=== PATIENT | female | born 1980 | race Caucasian/White ===

== ENCOUNTER → 2016-06-27 | Outpatient (CLI) | payer OTHER | END | disposition home or self-care (01) | LOC: LABWHC1 09:06 | PROVIDERS: ATTEND Surgery | DX: E89.0 Postprocedural hypothyroidism (principal) | CPT/HCPCS: 36415; 84436; 84439; 84443; 84480 ==

== ENCOUNTER 2017-08-14 16:45 | Emergency (ER) | payer OTHER ==
[2017-08-14 17:51] VITALS: RESP 18
[2017-08-14] MEDS ORDERED: DICYCLOMINE 20 MG TAB PO STA (18:00)
[2017-08-14] MEDS ORDERED: diphenhydrAMINE 50 MG/ML 1 ML VIAL IVP STA (18:00)
[2017-08-14] MEDS ORDERED: SODIUM CHLORIDE 0.9% 1,000 ML IV STA (18:00)
[2017-08-14] MEDS ORDERED: METOCLOPRAMIDE 5 MG/ML 2 ML VIAL IVP STA (18:00)
--- NOTE | 2017-08-14 18:04 | ED ---
Nausea/Vomiting/Diarrhea HPI - General Chief complaint: Nausea/Vomiting/Diarrhea Stated complaint: Flu Time Seen by Provider: 08/14/17 17:52 Source: patient Mode of arrival: ambulatory Limitations: no limitations - History of Present Illness Initial comments: Patient presents with 4 days nausea vomiting diarrhea. Patient states symptoms started to improve yesterday. Vomiting diarrhea is becoming less frequent. Patient has been able to keep small amounts of fluid and liquid down. Patient states she has abdominal cramps with bowel movements, no other pain otherwise. Patient denies fevers, chills, blood in stool or vomit. Denies cough, denies URI symptoms. Patient states her daughter and son are sick with similar symptoms. Denies history of bowel disease - Related Data Home Medications Medication Instructions Recorded Confirmed Levothyroxine Sodium [Synthroid] 125 mcg PO DAILY 01/24/15 08/14/17 Sertraline [Zoloft] 50 mg PO DAILY 08/14/17 08/14/17 Previous Rx's Medication Instructions Recorded Dicyclomine [Bentyl] 10 mg PO BID PRN #6 capsule 08/14/17 Metoclopramide [Reglan] 10 mg PO Q8HR PRN #6 tab 08/14/17 Allergies Allergy/AdvReac Type Severity Reaction Status Date / Time Milk Containing Products Allergy Anaphylaxis Verified 08/14/17 18:06 ondansetron HCl Allergy Anaphylaxis Verified 08/14/17 18:06 [From Zofran (as hydrochloride)] venom-honey bee Allergy Anaphylaxis Verified 08/14/17 18:06 [bee venom (honey bee)] Review of Systems ROS Statement: Those systems with pertinent positive or pertinent negative responses have been documented in the HPI. ROS Other: All systems not noted in ROS Statement are negative. Constitutional: Denies: fever, chills, weakness Eyes: Denies: vision change ENT: Denies: ear pain, throat pain, congestion Respiratory: Denies: cough, dyspnea Cardiovascular: Reports: other (Mild lightheadedness). Denies: chest pain, palpitations Endocrine: Reports: fatigue Gastrointestinal: Reports: abdominal pain, nausea, vomiting, diarrhea. Denies: constipation, hematemesis, melena, hematochezia Genitourinary: Denies: urgency, dysuria, frequency Musculoskeletal: Denies: back pain, joint swelling, arthralgia, myalgia Skin: Denies: rash, lesions, change in color Neurological: Denies: headache, confusion Past Medical History Past Medical History: Thyroid Disorder History of Any Multi-Drug Resistant Organisms: None Reported Past Surgical History: Orthopedic Surgery Additional Past Surgical History / Comment(s): thyroidectomy Past Psychological History: No Psychological Hx Reported Smoking Status: Never smoker Past Alcohol Use History: None Reported Past Drug Use History: None Reported General Exam - General Exam Comments Initial Comments: Sitting up in bed. No acute distress. Conversing normally. Calm, pleasant. Well appearing. Limitations: no limitations General appearance: alert, in no apparent distress Head exam: Present: atraumatic, normocephalic Eye exam: Present: normal appearance, PERRL, EOMI ENT exam: Present: normal exam, mucous membranes moist Neck exam: Present: normal inspection Respiratory exam: Present: normal lung sounds bilaterally. Absent: respiratory distress, wheezes, rales, rhonchi, stridor Cardiovascular Exam: Present: regular rate, normal rhythm GI/Abdominal exam: Present: soft. Absent: distended, tenderness, guarding, rebound, rigid Extremities exam: Present: normal inspection Neurological exam: Present: alert, oriented X3 Psychiatric exam: Present: normal affect, normal mood Skin exam: Present: warm, dry, intact, normal color. Absent: rash, cyanosis, diaphoretic, erythema Course Vital Signs 08/14/17 17:48 Temperature 98.7 F Pulse Rate 91 Respiratory 18 Rate Blood Pressure 105/67 O2 Sat by Pulse 97 Oximetry Medical Decision Making - Medical Decision Making IV fluids, Bentyl, Reglan, Benadryl ordered. Patient states she has anaphylaxis to Zofran. Patient states she is only being evaluated in the ER because she brought her son to the ER for evaluation as well, otherwise she would not have come to the ER for herself. Urinalysis appears contaminated Potassium replaced Patient reevaluated, states symptoms resolved at this time. No vomiting or diarrhea in the ER. Patient feels comfortable being discharged home. Discussed oral hydration with electrolyte containing solution. Patient has no abdominal pain at this time, abdomen remains nontender. Patient agrees to follow primary care physician. Return to ER for new or worsening symptoms. Prescription reglan & Bentyl given. - Lab Data Result diagrams: 08/14/17 18:45 08/14/17 18:45 Lab Results 08/14/17 08/14/17 08/14/17 Range/Units 18:45 18:45 18:45 WBC 5.3 (3.8-10.6) k/uL RBC 5.25 (3.80-5.40) m/uL Hgb 16.3 H (11.4-16.0) gm/dL Hct 47.4 H (34.0-46.0) % MCV 90.3 (80.0-100.0) fL MCH 31.0 (25.0-35.0) pg MCHC 34.3 (31.0-37.0) g/dL RDW 12.6 (11.5-15.5) % Plt Count 197 (150-450) k/uL Neutrophils % 71 % Lymphocytes % 17 % Monocytes % 8 % Eosinophils % 1 % Basophils % 1 % Neutrophils # 3.8 (1.3-7.7) k/uL Lymphocytes # 0.9 L (1.0-4.8) k/uL Monocytes # 0.4 (0-1.0) k/uL Eosinophils # 0.1 (0-0.7) k/uL Basophils # 0.0 (0-0.2) k/uL Sodium 141 (137-145) mmol/L Potassium 3.3 L (3.5-5.1) mmol/L Chloride 105 (98-107) mmol/L Carbon Dioxide 19 L (22-30) mmol/L Anion Gap 17 mmol/L BUN 12 (7-17) mg/dL Creatinine 0.90 (0.52-1.04) mg/dL Est GFR (CKD-EPI)AfAm >90 (>60 ml/min/1.73 sqM) Est GFR (CKD-EPI)NonAf 83 (>60 ml/min/1.73 sqM) Glucose 84 (74-99) mg/dL Calcium 8.5 (8.4-10.2) mg/dL Total Bilirubin 0.4 (0.2-1.3) mg/dL AST 31 (14-36) U/L ALT 25 (9-52) U/L Alkaline Phosphatase 79 (38-126) U/L Total Protein 7.3 (6.3-8.2) g/dL Albumin 4.0 (3.5-5.0) g/dL Lipase 264 (23-300) U/L Urine Color Yellow Urine Appearance Cloudy H (Clear) Urine pH 6.0 (5.0-8.0) Ur Specific Biggers 1.025 (1.001-1.035) Urine Protein 1+ H (Negative) Urine Glucose (UA) Negative (Negative) Urine Ketones 1+ H (Negative) Urine Blood Moderate H (Negative) Urine Nitrite Negative (Negative) Urine Bilirubin Negative (Negative) Urine Urobilinogen <2.0 (<2.0) mg/dL Ur Leukocyte Esterase Large H (Negative) Urine RBC 6 H (0-5) /hpf Urine WBC 50 H (0-5) /hpf Ur Squamous Epith Cells 55 H (0-4) /hpf Urine Mucus Occasional H (None) /hpf Urine HCG, Qual (Not Detectd) 08/14/17 Range/Units 18:45 WBC (3.8-10.6) k/uL RBC (3.80-5.40) m/uL Hgb (11.4-16.0) gm/dL Hct (34.0-46.0) % MCV (80.0-100.0) fL MCH (25.0-35.0) pg MCHC (31.0-37.0) g/dL RDW (11.5-15.5) % Plt Count (150-450) k/uL Neutrophils % % Lymphocytes % % Monocytes % % Eosinophils % % Basophils % % Neutrophils # (1.3-7.7) k/uL Lymphocytes # (1.0-4.8) k/uL Monocytes # (0-1.0) k/uL Eosinophils # (0-0.7) k/uL Basophils # (0-0.2) k/uL Sodium (137-145) mmol/L Potassium (3.5-5.1) mmol/L Chloride (98-107) mmol/L Carbon Dioxide (22-30) mmol/L Anion Gap mmol/L BUN (7-17) mg/dL Creatinine (0.52-1.04) mg/dL Est GFR (CKD-EPI)AfAm (>60 ml/min/1.73 sqM) Est GFR (CKD-EPI)NonAf (>60 ml/min/1.73 sqM) Glucose (74-99) mg/dL Calcium (8.4-10.2) mg/dL Total Bilirubin (0.2-1.3) mg/dL AST (14-36) U/L ALT (9-52) U/L Alkaline Phosphatase (38-126) U/L Total Protein (6.3-8.2) g/dL Albumin (3.5-5.0) g/dL Lipase (23-300) U/L Urine Color Urine Appearance (Clear) Urine pH (5.0-8.0) Ur Specific Biggers (1.001-1.035) Urine Protein (Negative) Urine Glucose (UA) (Negative) Urine Ketones (Negative) Urine Blood (Negative) Urine Nitrite (Negative) Urine Bilirubin (Negative) Urine Urobilinogen (<2.0) mg/dL Ur Leukocyte Esterase (Negative) Urine RBC (0-5) /hpf Urine WBC (0-5) /hpf Ur Squamous Epith Cells (0-4) /hpf Urine Mucus (None) /hpf Urine HCG, Qual Not Detected (Not Detectd) Disposition Clinical Impression: Vomiting, Diarrhea Disposition: HOME SELF-CARE Condition: Good Instructions: Acute Nausea and Vomiting (ED), Acute Diarrhea (ED) Additional Instructions: Follow-up with your primary care physician. Return to ER if new or worsening symptoms. Prescriptions: Dicyclomine [Bentyl] 10 mg PO BID PRN #6 capsule PRN Reason: abdominal cramps Metoclopramide [Reglan] 10 mg PO Q8HR PRN #6 tab PRN Reason: Nausea Is patient prescribed a controlled substance at discharge?: No Referrals: Mya Anglin MD [Primary Care Provider] - 1-2 days
[2017-08-14 18:53] LABS: Basophils % (A) 1 %; Eosinophils # (A) 0.1 k/uL (0-0.7); Eosinophils % (A) 1 %; HCT 47.4 % (34.0-46.0); HGB 16.3 gm/dL (11.4-16.0); Lymphocytes # (A) 0.9 k/uL (1.0-4.8); Lymphocytes % (A) 17 %; MCHC 34.3 g/dL (31.0-37.0); MCV 90.3 fL (80.0-100.0); Mean Platelet Volume 8.1; Monocytes # (A) 0.4 k/uL (0-1.0); Monocytes % (A) 8 %; Neutrophils # (A) 3.8 k/uL (1.3-7.7); Neutrophils % (A) 71 %; Platelet Count 197 k/uL (150-450); RBC 5.25 m/uL (3.80-5.40); RDW 12.6 % (11.5-15.5); WBC 5.3 k/uL (3.8-10.6)
[2017-08-14 18:56] LABS: Appearance,Urine Cloudy (Clear); Bilirubin,Urine Negative (Negative); Blood,Urine Moderate (Negative); Color,Urine Yellow; Glucose,Urine (UA) Negative (Negative); Ketones,Urine 1+ (Negative); Leukocyte Esterase,Urine Large (Negative); Mucus,Urine Occasional /hpf; Nitrite,Urine Negative (Negative); Protein,Urine 1+ (Negative); RBC,Urine 6 /hpf (0-5); Specific Gravity,Urine 1.025 (1.001-1.035); Squamous Epithelial Cell,Urine 55 /hpf (0-4); Urobilinogen,Urine <2.0 mg/dL (<2.0); WBC,Urine 50 /hpf (0-5)
[2017-08-14 19:12] LABS: ALT 25 U/L (9-52); AST 31 U/L (14-36); Alkaline Phosphatase 79 U/L (38-126); Anion Gap 17 mmol/L; Blood Urea Nitrogen 12 mg/dL (7-17); Calcium 8.5 mg/dL (8.4-10.2); Carbon Dioxide 19 mmol/L (22-30); Chloride 105 mmol/L (98-107); Glucose 84 mg/dL (74-99); Lipase 264 U/L (23-300); Potassium 3.3 mmol/L (3.5-5.1); Sodium 141 mmol/L (137-145); Total Bilirubin 0.4 mg/dL (0.2-1.3); Total Protein 7.3 g/dL (6.3-8.2)
[2017-08-14] MEDS ORDERED: POTASSIUM CHLORIDE ER 10 MEQ TAB.ER.PRT PO STA (19:44)
[2017-08-14 20:36] VITALS: BP 108/57; PULSE 83; TEMP 98.5
== END 2017-08-14 20:34 | disposition home or self-care (01) ==
LOC: EC 16:45
DX: R11.2 Nausea with vomiting, unspecified (principal); R19.7 Diarrhea, unspecified; E07.9 Disorder of thyroid, unspecified; Z79.899 Other long term (current) drug therapy; Z91.011 Allergy to milk products; Z91.030 Bee allergy status; Z88.8 Allergy status to other drugs, medicaments and biological substances; Z90.89 Acquired absence of other organs
CPT/HCPCS: 99283; 96374; 96375; 36415; 80053; 83690; 85025; 81001; 81025; J1200; J2765

== ENCOUNTER → 2020-09-04 | Outpatient (CLI) | payer OTHER | END | disposition home or self-care (01) | LOC: LABWHC1 11:31 | PROVIDERS: ATTEND Surgery | DX: E89.0 Postprocedural hypothyroidism (principal) | CPT/HCPCS: 36415; 84436; 84439; 84443; 84480 ==

== ENCOUNTER → 2021-04-03 | Outpatient (CLI) | payer OTHER | END | disposition home or self-care (01) | LOC: LABWHC1 11:37 | PROVIDERS: ATTEND Surgery | DX: E89.0 Postprocedural hypothyroidism (principal) | CPT/HCPCS: 36415; 84436; 84439; 84443; 84480 ==

== ENCOUNTER → 2022-05-17 | Outpatient (CLI) | payer OTHER | END | disposition home or self-care (01) | LOC: LABWHC1 09:39 | PROVIDERS: ATTEND Surgery | DX: E89.0 Postprocedural hypothyroidism (principal) | CPT/HCPCS: 36415; 84439; 84443; 84481 ==